=== PATIENT | male | born 1980 | race Two or more races ===

== ENCOUNTER 2023-09-15 03:17 | Emergency (ER) | payer SELFPAY ==
[~2023-09-15] VITALS: Ht 170.2 cm; Wt 155.0 kg
[2023-09-15 03:44] VITALS: BP_SYST 125
[2023-09-15 04:01] VITALS: BP_DIAS 71; PULSE 155; TEMP 102.7
== END 2023-09-15 09:06 | disposition left against medical advice (07) ==
LOC: ER 04:34
DX: M79.673 Pain in unspecified foot (principal); Z53.21 Procedure and treatment not carried out due to patient leaving prior to being seen by health care provider
CPT/HCPCS: 99281